=== PATIENT | male | born 1980 | race Caucasian/White ===

== ENCOUNTER 2024-06-15 15:23 | Emergency (ER) | payer OTHER, SELFPAY ==
[2024-06-15 15:28] VITALS: BP 207/127
[2024-06-15 15:34] VITALS: BP 125/89
--- NOTE | 2024-06-15 16:39 | ED.GENMED ---
History of Present Illness
General
Chief Complaint: Skin Surface Trauma
Source: patient
Time Seen by Provider: 06/15/24 16:18
History of Present Illness
History of Present Illness:
43-year-old male presenting to the emergency department for evaluation of laceration sustained to the base of the left thumb along the dorsal aspect of the hand after he accidentally cut his hand trying to undo a zip tie at around 2:45 PM. No other
injuries were sustained. Patient is right-hand dominant. He believes his tetanus vaccine is up to 8.
Past History
Past History
ED Past Medical History: Other (HIV positive) and Other (Scrotal abscess)
ED Past Surgical History: Orthopedic (Hand surgery) and Other (Tear duct surgery)
Social History
Tobacco: Non-smoker
Alcohol: None
Drug: None
Personal: Single
Living: alone
Employment: Employed
Review of Systems
Review of Systems
All Other Systems: ROS reviewed and negative except as documented in HPI and ROS
Phy Exam
Physical Exam
Physical Exam:
GENERAL: Alert , in no apparent distress
EYE: conjunctiva clear
Head: Normocephalic atraumatic
NECK: Supple,
ENT: mmm.
LUNGS: no acute respiratory distress
NEUROLOGICAL: Alert and oriented
SKIN: Warm and dry, V-shaped 1-1/2 cm laceration along the dorsal aspect of the left hand at the base of the thumb extending towards the interdigital webbing space. No active bleeding
MUSCULOSKELETAL: well perfused. Full range of motion of the left thumb. Sensation grossly intact to light touch
PSYCH: Normal and appropriate interaction.
Scores
Heart Failure Risk
Heart Failure Risk Score: Not Applicable
Heart Score for Chest Pain Patients
STEMI patient?: Not applicable
Withdrawal Assessment of Alcohol
Withdrawal Assessment Completed?: Not applicable
Course
Vital Signs
Initial and Last Documented VS:
Initial Vital Signs
Temp Pulse Resp BP Pulse Ox
98 F 65 16 207/127 99
06/15/24 15:28 06/15/24 15:28 06/15/24 15:28 06/15/24 15:28 06/15/24 15:28
Last Documented Vital Signs
Temp Pulse Resp BP Pulse Ox
98 F 65 16 125/89 99
06/15/24 15:28 06/15/24 15:28 06/15/24 15:28 06/15/24 15:34 06/15/24 15:28
Procedures
Laceration Closure
Left Dorsal Thumb:
Status of Wound: clean
Size of Wound in cm: 1.5
Description of Wound Edges: sharp
Preparation: cleaned with saline
Anesthesia: 1% Lidocaine
Revision/Debridement: routine- no revision
Type of Closure: single layer closure
Skin Closure Material: 5-0 nylon
Number of sutures: 8
MDM/Problems Addressed
Differential Diagnosis Includes:
Superficial laceration to the base of the left thumb extending towards the interdigital webbing space. No concern for tendon or nerve laceration
MDM/Problems Addressed:
43 year old presenting to the ER for evaluation of superficial laceration to the base of the left thumb. Laceration repaired without difficulty. Hemostasis achieved. Suture removal 10 to 12 days. Patient advised on wound care. Motrin/Tylenol as
needed for pain. Stable for discharge home.
*Pulse Oximetry
Patient hypoxic: no
*Critical Care Note
Total Time (30-74mins, 75-104mins- exclusive of procedures): Not Applicable
ED Attending Note
-
Portions of this chart may have been created with voice recognition software.� Occasional wrong word or��sound alike� substitutions may have occurred due to the inherent limitations of voice recognition software.
Discharge Plan
Departure
Patient Disposition: Home (Routine Discharge)
Date of Disposition: 06/15/24
Time of Disposition: 16:39
Patient with high blood pressure during this ER visit?: Yes
Discharge Problem:
Laceration of left thumb
Instructions: Laceration Repair With Stitches (DC)
Prescriptions:
No Action
B-complex with vitamin C 1 CAPLET tablet
1 cap PO DAILY
biotin 1 MG capsule
1 mg PO DAILY
[id number]-[id number] [Triumeq] 1 EACH tablet
1 tab PO DAILY
ibuprofen 800 MG tablet
800 mg PO Q6HPRN PRN (Reason: pain)
clonazepam 1 MG tablet
1 mg PO Q6HPRN PRN (Reason: anxiety)
acetaminophen 325 MG tablet
650 mg PO Q4HPRN PRN (Reason: mild pain) Qty: 1 0RF
oxycodone 5 MG tablet
5 mg PO Q4HPRN PRN (Reason: breakthrough/severe pain) Qty: 10 0RF
doxycycline hyclate 100 MG capsule
100 mg PO Q12 Qty: 28 0RF
Activity Restrictions/Additional Instructions:
Suture removal in 10-12 days
Interventions
Interventions:
*Risk Screen - Suicide Last Done: 06/15/24 15:32
*General Assessment Last Done: 06/15/24 16:57
*Neglect/Abuse Screening Last Done: 06/15/24 15:32
ED- Fall Risk Assessment Last Done: 06/15/24 16:59
*ED COVID-19 Vaccine History Last Done: 06/15/24 15:31
*Nursing Disposition Last Done: 06/15/24 16:59
ED-Skin Assessment Last Done: 06/15/24 16:57
Discharge Date and Time
Discharge Date/Time: 06/15/24 16:59
Print Language: DANISH
== END 2024-06-15 16:59 | disposition home or self-care (01) ==
LOC: EMR 15:23
PROVIDERS: EMERGENCY PHYSICIAN Emergency Medicine; FAMILY PHYSICIAN Family Medicine
DX: S61.012A Laceration without foreign body of left thumb without damage to nail, initial encounter (principal); W45.8XXA Other foreign body or object entering through skin, initial encounter; Z21 Asymptomatic human immunodeficiency virus [HIV] infection status
CPT/HCPCS: 12001; 99282